=== PATIENT | female | born 1930 | race Caucasian/White ===

== ENCOUNTER → 2017-01-05 | Outpatient (CLI) | payer BC ==
--- NOTE | 2017-01-05 12:19 | MAMMOGRAPHY REPORT ---
BILATERAL DIGITAL SCREENING MAMMOGRAM WITH CAD: 01/05/2017 CLINICAL HISTORY: Routine screening. TECHNIQUE: Bilateral CC and MLO views were obtained. Current study was also evaluated with a Compute r Aided Detection (CAD) system. COMPARISON: Comparison is made to exams dated: 01/04/2016 mammogram - [facility], mammogram, 03/21/2013 mammogram, 03/20/2012 mammogram, 02/06/2011 mammogram, and 01/28/2010 mammo gram - [facility]. BREAST COMPOSITION: The tissue of both breasts is heterogeneously dense, which may obscure small mas ses. FINDINGS: A linear scar marker overlies the right upper outer quadrant. There are scattered benign r ound calcifications in the breasts. No suspicious mass, architectural distortion or cluster of suspi cious microcalcifications is seen. IMPRESSION: ACR BI-RADS CATEGORY 1: NEGATIVE There is no mammographic evidence of malignancy. A 1 year screening mammogram is recommended. The pa tient will receive written notification of the results. Approximately 10% of breast cancers are not detected with mammography. A negative mammographic report should not delay biopsy if a clinically suggestive mass is present. Dorothy Moon M.D. ay/:01/05/2017 10:23:47 Bus Steward: Lala BELL(R)(M), [facility] letter sent: Normal 1/2 BI-RADS Code: ACR BI-RADS Category 1: Negative
== END | disposition home or self-care (01) ==
LOC: C.MAMM 09:38
PROVIDERS: ATTEND Internal Medicine
DX: Z12.31 Encounter for screening mammogram for malignant neoplasm of breast (principal)

== ENCOUNTER → 2017-02-22 | Outpatient (CLI) | payer BC ==
--- NOTE | 2017-03-02 09:34 | CODING QUERY MEDICAL NECESSITY ---
SUPPORTING DIAGNOSIS NEEDED Dr. Michael, A supporting diagnosis is required for the test/procedure performed on this patient in order for us to be reimbursed by the patient's insurance. Please provide a supporting diagnosis for the following test/procedure listed below next to the test name along with your signature. *If there is no additional diagnosis for this patient that would support the following test/procedure please document that below next to the test/procedure. Test(s)/Procedure(s) that require a supporting diagnosis: * ([id number]) B12 VITAMIN LEVEL DIAGNOSIS: DATE OF SERVICE: 02/22/17 Provider Signature: Date: Thank you [facility] Information Management Once completed, please kindly fax back to [phone] For questions please call [phone]
== END | disposition home or self-care (01) ==
LOC: C.LABVPSUW 09:17
PROVIDERS: ATTEND Psychiatry & Neurology Neurology
DX: R47.89 Other speech disturbances (principal); R41.3 Other amnesia

== ENCOUNTER → 2017-03-02 | Outpatient (CLI) | payer BC ==
--- NOTE | 2017-03-02 11:45 | DIAGNOSTIC IMAGING REPORT ---
MRI OF THE BRAIN WITHOUT CONTRAST CLINICAL HISTORY: WORD FINDING DIFFICULTY. COMPARISON STUDY: None. TECHNIQUE: Utilizing a 1.5 Maria Luz magnet and dedicated coil, multiplanar, multiecho imaging of the brain was performed without IV contrast. FINDINGS: There are no areas of restricted diffusion to suggest acute infarct. No acute intracranial hemorrhage, midline shift or mass effect is present. Mild ventricular dilatation is likely due to atrophy. There is a cavum septum pellucidum. There is mild atrophy. No intracranial masses are identified on this unenhanced exam. A few small white matter T2 hyperintense foci within the bilateral frontal lobes suggest minimal small vessel disease. Calvarial signal is maintained. There is a small amount of fluid within left mastoid air cells. Flow-voids for the major intracranial vessels are present. Orbits and sinuses are unremarkable. IMPRESSION: 1. No acute intracranial findings. 2. Mild atrophy and minimal small vessel disease. 3. No intracranial masses identified on unenhanced exam. 4. Small amount of fluid within the left mastoid air cells. Electronically signed by: Get Melendez M.D. 03/02/2017 11:43 AM Dictated Date/Time: 03/02/2017 11:40 AM
== END | disposition home or self-care (01) ==
LOC: C.MRIBC 10:20
PROVIDERS: ATTEND Psychiatry & Neurology Neurology
DX: R47.89 Other speech disturbances (principal)

== ENCOUNTER → 2017-04-12 | Outpatient (CLI) | payer BC ==
[~2017-04-12] MED LIST: REGADENOSON 0.4 MG/5 ML SYR ONE
--- NOTE | 2017-04-13 14:54 | MYOCARDIAL PERFUSION SCAN ---
DATE OF THE PROCEDURE: 04/12/2017. REASON FOR THE PROCEDURE: Chest discomfort, shortness of breath pressure, history of SVT, and dyspnea on exertion. The patient underwent a Lexiscan stress ECG. The results of that are under a separate cover. There were no diagnostic ST changes either in peak Lexiscan effect or recovery. TECHNIQUE: For the stress portion of the study 32.8 mCi of technetium-99m Cardiolite IV was injected at 11:10 a.m. on 04/12/2017. Thirty minutes following the injection, imaging of the heart was performed in multiple projections. For the rest portion of the study, 11.1 mCi of technetium-99m Cardiolite was injected IV at 9:40 a.m. One hour following the injection, imaging of the heart was performed in the same projections. RAW DATA: On raw data there is a mild amount of motion artifact on the stress images. There is small in size, mild in intensity fixed apical defect which is most consistent with apical thinning. There is a moderate in size, moderate intensity fixed septal defect. This is most consistent with septal thinning from the membranous septum. There is no evidence of ischemia nor scar. Quantitative analysis performed confirms these findings with a sum stress score of 0 suggesting a normal study. Gated SPECT was performed. Overall, left ventricular size and function is preserved. The end-diastolic volume was 47 mL. The calculated ejection fraction was 79%. There is no visual evidence of transient ischemic dilatation. IMPRESSIONS: 1. Normal myocardial perfusion study without evidence of ischemia nor scar. 2. Normal left ventricular size and function with a calculated ejection fraction of 79%. [facility]
== END | disposition home or self-care (01) ==
LOC: C.NUCL 09:06
PROVIDERS: ATTEND Internal Medicine Cardiovascular Disease
DX: I47.1 Supraventricular tachycardia (principal); R06.09 Other forms of dyspnea

== ENCOUNTER → 2017-05-23 | Day surgery (SDC) | payer BC ==
[2017-05-15 07:51] VITALS: Ht 152.4 cm; Wt 72.7 kg
[~2017-05-23] VITALS: Ht 152.4 cm; Wt 72.7 kg
[~2017-05-23] MED LIST changes: +ATOR-24 PO; +CALC600T9 PO; +FURO-85 PO; +LIDOCAINE HCL 2% 2 ML VIAL (20MG/ML) ONE; +METO100T7 PO; +PRLSR20 PO; +PROPOFOL IV EMULSION 10 MG/ML 20 ML VIAL IV ONE; -REGADENOSON 0.4 MG/5 ML SYR ONE; +SODIUM CHLORIDE 0.9% 500ML 500 ML IV ONE
--- NOTE | 2017-05-23 13:59 | Endo History and Physical ---
History & Physical Date of Service: May 23, 2017. Chief Complaint: Referring Physician: History of Present Illness reflux/sob Past Surgical History Hx Cardiac Surgery: No Hx Internal Defibrillator: No Hx Pacemaker: No Hx Abdominal Surgery: Yes (APPY, HYSTERECTOMY) Hx of Implantable Prosthesis: No Hx Post-Op Nausea and Vomiting: No Hx Cancer Surgery: No Hx Thoracic Surgery: No Hx Orthopedic: Yes (RT KNEE ARTHROSCOPY, RT RCR) Hx Urinary Tract Surgery: No Family History Colon CA Social History Smoking Status: Never Smoker Hx Substance Use: No Hx Alcohol Use: No Allergies Coded Allergies: Aspirin (Verified Allergy, Unknown, GI BLEED? ANEMIA, 05/15/17) Ketorolac Tromethamine (Verified Allergy, Unknown, SWELLING, 05/15/17) Meperidine (Verified Allergy, Unknown, SHORTNESS OF BREATH, 05/15/17) Rofecoxib (Verified Allergy, Unknown, "THROAT CLOSED UP", 05/15/17) Current Medications Reported Home Medications Medications Dose Route/Sig Max Daily Dose Days Date Category Lasix (Furosemide) 20 Mg Tab 20 Mg PO Q2D 05/15/17 Reported Calcium + D (Calcium Carbonate-Vitamin D) 1 Tab Tab 1 Tab PO QPM 05/15/17 Reported Toprol Xl (Metoprolol Succinate) 100 Mg Tab 100 Mg PO QPM 05/15/17 Reported Prilosec (Omeprazole) 20 Mg Capcr 20 Mg PO QPM 05/15/17 Reported Lipitor (Atorvastatin Calcium) 40 Mg Tab 40 Mg PO QPM 05/15/17 Reported Vital Signs Weight (Kilograms): 72.73 Height (Feet): 5 Height (Inches): 0 Physical Exam General Appearance: WD/WN, no apparent distress Respiratory/Chest: Auscultation: breath sounds normal Cardiovascular: Heart Auscultation: RRR Abdomen: Bowel Sounds: normal Inspection & Palpation: soft, non-distended, no tenderness, guarding & rebound Assessment and Plan EGD
--- NOTE | 2017-05-23 15:20 | Anesthesiology Progress Note ---
Anesthesia Post Op Note Date & Time May 23, 2017 at 15:20 Vital Signs Pain Intensity: 0 Vital Signs Past 12 Hours Date Time Temp Pulse Resp B/P (MAP) Pulse Ox O2 Delivery O2 Flow Rate FiO2 05/23/17 15:05 71 12 134/66 (88) 96 Room Air 05/23/17 14:25 36.5 72 20 149/79 (102) 96 Room Air Notes Mental Status: alert / awake / arousable, participated in evaluation Pt Amnestic to Procedure: Yes Nausea / Vomiting: adequately controlled Pain: adequately controlled Airway Patency, RR, SpO2: stable & adequate BP & HR: stable & adequate Hydration State: stable & adequate Anesthetic Complications: no major complications apparent
--- NOTE | 2017-05-23 15:30 | GI REPORT ---
Procedure Date: 05/23/2017 2:42 PM Procedure: Upper GI endoscopy Indications: Gastro-esophageal reflux disease, Abnormal UGI series, Chest pain (non cardiac) Medicines: Propofol per Anesthesia Complications: No immediate complications. Estimated blood loss: None. Estimated Blood Loss: Estimated blood loss: none. Procedure: Pre-Anesthesia Assessment: - Prior to the procedure, a History and Physical was performed, and patient medications and allergies were reviewed. The patient's tolerance of previous anesthesia was also reviewed. The risks and benefits of the procedure and the sedation options and risks were discussed with the patient. All questions were answered, and informed consent was obtained. Prior Anticoagulants: The patient has taken no previous anticoagulant or antiplatelet agents. ASA Grade Assessment: III - A patient with severe systemic disease. After reviewing the risks and benefits, the patient was deemed in satisfactory condition to undergo the procedure. After obtaining informed consent, the endoscope was passed under direct vision. Throughout the procedure, the patient's blood pressure, pulse, and oxygen saturations were monitored continuously. The scope was introduced through the mouth, and advanced to the third part of duodenum. The upper GI endoscopy was accomplished without difficulty. The patient tolerated the procedure well. Findings: The examined esophagus was normal. A large hiatus hernia was found. The proximal extent of the gastric folds (end of tubular esophagus) was 33 cm from the incisors. The hiatal narrowing was 39 cm from the incisors. The Z-line was 33 cm from the incisors. The entire examined stomach was normal. The examined duodenum was normal. Retained gastric contents are not identified on this exam. The cardia and gastric fundus were normal on retroflexion. Impression: - Normal esophagus. - Large hiatus hernia. - Normal stomach. - Normal examined duodenum. - No specimens collected. Recommendation: - Discharge patient to home (ambulatory). - Advance diet as tolerated. - Continue present medications. - Return to referring physician as previously scheduled. MD Zhen Almonte MD 05/23/2017 3:29:51 PM This report has been signed electronically. Note Initiated On: 05/23/2017 2:42 PM I attest to the content of the Intraoperative Record and orders documented therein, exceptions below
--- NOTE | 2017-05-23 15:31 | Discharge Instructions ---
Endoscopy Patient Instructions Date / Procedure(s) Performed May 23, 2017. EGD Allergy Information Coded Allergies: Aspirin (Verified Allergy, Unknown, GI BLEED? ANEMIA, 05/23/17) Ketorolac Tromethamine (Verified Allergy, Unknown, SWELLING, 05/23/17) Meperidine (Verified Allergy, Unknown, SHORTNESS OF BREATH, 05/23/17) Pseudoephedrine (Verified Allergy, Unknown, decreased heart rate, 05/23/17) Rofecoxib (Verified Allergy, Unknown, "THROAT CLOSED UP", 05/23/17) Discharge Date / Findings May 23, 2017. Large Medication Instructions Restart Stopped Medication(s): Reported Home Medications Medications Dose Route/Sig Max Daily Dose Days Date Category Lasix (Furosemide) 20 Mg Tab 20 Mg PO Q2D 05/15/17 Reported Calcium + D (Calcium Carbonate-Vitamin D) 1 Tab Tab 1 Tab PO QPM 05/15/17 Reported Toprol Xl (Metoprolol Succinate) 100 Mg Tab 100 Mg PO QPM 05/15/17 Reported Prilosec (Omeprazole) 20 Mg Capcr 20 Mg PO QPM 05/15/17 Reported Lipitor (Atorvastatin Calcium) 40 Mg Tab 40 Mg PO QPM 05/15/17 Reported Reported Home Medications Medications Dose Route/Sig Max Daily Dose Days Date Category Lasix (Furosemide) 20 Mg Tab 20 Mg PO Q2D 05/15/17 Reported Calcium + D (Calcium Carbonate-Vitamin D) 1 Tab Tab 1 Tab PO QPM 05/15/17 Reported Toprol Xl (Metoprolol Succinate) 100 Mg Tab 100 Mg PO QPM 05/15/17 Reported Prilosec (Omeprazole) 20 Mg Capcr 20 Mg PO QPM 05/15/17 Reported Lipitor (Atorvastatin Calcium) 40 Mg Tab 40 Mg PO QPM 05/15/17 Reported Provider Instructions Activity Restrictions - No exercising or heavy lifting for 24 hours. - Do not drink alcohol the day of the procedure. - Do not drive a car or operate machinery until the day after the procedure. - Do not make any important decisions or sign important papers in 24 hours after the procedure. Following Day: - Return to full activity which may include returning to work/school. Diet Start your diet with liquids and light foods (jello, soup, juice, toast). Then eat your usual diet if not nauseated. Treatment For Common After Affects For mild abdominal pain, bloating, or excessive gas: - Rest - Eat lightly - Lie on right side Follow-Up Information Follow-up with Dr. Vargas as scheduled Anesthesia Information What You Should Know You have had a procedure that required some medicine to reduce anxiety and discomfort. This treatment is called moderate sedation. After receiving the treatment, you may be sleepy, but you will be able to breathe on your own. The effects of the treatment may last for several hours. Follow these instructions along with Activity/Diet recommendations noted above: * Do NOT do anything where dizziness or clumsiness would be dangerous. * Rest quietly at home today, then you can be up and about tomorrow. * Have a responsible person stay with you the rest of today. * You may have had an I.V. today. If so, you may take the dressing off later today. Recommendations Call your doctor if: * Trouble breathing * Continuous vomiting for more than 24 hours * Temperature above 101 degrees * Severe abdominal pain or bloating * Pain not relieved by pain medicine ordered * There is increased drainage or redness from any incision * A large amount of rectal bleeding greater than 2-3 tablespoons. (If you had a polyp/s removed or have hemorrhoids, a small amount of blood - from the rectum is to be expected.) * You have any unanswered questions or concerns. IN THE EVENT OF A SERIOUS EMERGENCY, GO TO THE NEAREST EMERGENCY ROOM Your discharge instructions were prepared by provider Zhen Jimenez. Patient Instructions Signature Page Rossana Olivares Patient (or Guardian) Signature/Date: I have read and understand the instructions given to me by my caregivers. Caregiver/RN/Doctor Signature/Date: The above-named patient and/or guardian has received patient instructions on this date. + Original Patient Signature Page (only) stays with chart. Please make copy for patient.
[2017-05-23 15:35] VITALS: BP 144/72; PULSE 67; O2SAT 97
== END | disposition home or self-care (01) ==
LOC: C.GI 13:27
PROVIDERS: ATTEND Internal Medicine Gastroenterology
DX: R07.89 Other chest pain (principal); K44.9 Diaphragmatic hernia without obstruction or gangrene; K21.9 Gastro-esophageal reflux disease without esophagitis; Z90.49 Acquired absence of other specified parts of digestive tract; Z90.710 Acquired absence of both cervix and uterus; Z80.0 Family history of malignant neoplasm of digestive organs

== ENCOUNTER → 2017-06-06 | Outpatient (CLI) | payer BC ==
[~2017-06-06] MED LIST changes: -LIDOCAINE HCL 2% 2 ML VIAL (20MG/ML) ONE; -PROPOFOL IV EMULSION 10 MG/ML 20 ML VIAL IV ONE; -SODIUM CHLORIDE 0.9% 500ML 500 ML IV ONE
== END | disposition home or self-care (01) ==
LOC: C.RDSM 11:08
PROVIDERS: ATTEND Family Medicine Sports Medicine
DX: M54.5 Low back pain (principal); M25.551 Pain in right hip

== ENCOUNTER 2017-08-18 22:52 | Emergency (ER) | payer BC ==
[~2017-08-18] VITALS: Ht 154.9 cm; Wt 78.4 kg
[2017-08-18 22:58] VITALS: TEMP 36.4; Ht 154.9 cm; Wt 78.4 kg
[2017-08-18] MEDS ORDERED: ACETAMINOPHEN 500 MG TAB PO STA (23:11)
--- NOTE | 2017-08-18 23:16 | EMERGENCY ROOM VISIT NOTE ---
History Report prepared by Neva: Mariajose Doe Under the Supervision of: Dr. Aman Quinones M.D. First contact with patient: 22:55 Chief Complaint: LEG PAIN,LEG INJURY Stated Complaint: LEFT LEG/HIP PAIN History of Present Illness The patient is an 87 year old female who presents to the Emergency Room with complaints of persistent left leg pain that started this morning. The patient rates her pain a 10/10 in severity. However, the patient is smiling in room and in minimal distress. She notes the pain starts at her left hip and shoots down to her let ankle. 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 The patient has not had back surgery in the past. The patient notes she's had trouble with her sciatica nerve in the past. She reports she took Tylenol this morning and it helped her pain. She states she felt fine throughout the day until dinner time when her leg started to feel stiff. She notes she took a walk to help the stiffness and on her way back it began to hurt. The patient states she exercised yesterday. The patient denies any back pain, nausea, or fever. She reports she was recently sick with a sore throat, sinus infection, and bladder infection but she is feeling better now. Source of History: patient Onset: this morning Position: leg (left) Symptom Intensity: 10/10 Timing: other (persistent) Associated Symptoms: No fevers, No nausea, No back pain Review of Systems See HPI for pertinent positives & negatives. A total of 10 systems reviewed and were otherwise negative. Past Medical & Surgical Arthritis in back. Family History No pertinent family history Social History Smoking Status: Never Smoker Marital Status: single Occupation Status: unemployed Current/Historical Medications Scheduled Atorvastatin (Lipitor), 40 MG PO QPM Calcium Carbonate-Vitamin D (Calcium + D), 1 TAB PO QPM Furosemide (Lasix), 20 MG PO Q2D Metoprolol Succinate (Toprol Xl), 100 MG PO QPM Omeprazole (Prilosec), 20 MG PO QPM Allergies Coded Allergies: Aspirin (Verified Allergy, Unknown, GI BLEED? ANEMIA, 05/23/17) Ketorolac Tromethamine (Verified Allergy, Unknown, SWELLING, 05/23/17) Meperidine (Verified Allergy, Unknown, SHORTNESS OF BREATH, 05/23/17) Pseudoephedrine (Verified Allergy, Unknown, decreased heart rate, 05/23/17) Rofecoxib (Verified Allergy, Unknown, "THROAT CLOSED UP", 05/23/17) Physical Exam Vital Signs Date Time Temp Pulse Resp B/P (MAP) Pulse Ox O2 Delivery O2 Flow Rate FiO2 08/19/17 03:16 76 20 180/80 95 Room Air 08/19/17 02:24 84 20 201/95 97 Room Air 08/19/17 00:46 76 20 179/97 97 Room Air 08/19/17 00:18 78 18 145/78 96 Room Air 08/18/17 22:58 36.4 17 161/79 96 Room Air Physical Exam GENERAL: Patient is anxious appearing and in minimal distress. HEENT: No acute trauma, normocephalic atraumatic, mucous membranes moist, no nasal congestion, no scleral icterus. NECK: No stridor, no adenopathy, no meningismus, trachea is midline. LUNGS: No dyspnea. Clear to auscultation and equal bilaterally. No wheeze, no rhonchi. HEART: Regular rate and rhythm. No murmurs, rubs, gallops appreciated. ABDOMEN: Soft, nontender, bowel sounds positive, no masses appreciated, no peritonitis. BACK: No midline tenderness, no CVA tenderness EXTREMITIES: Normal motion all extremities, no cyanosis, no edema. NEUROLOGIC: Alert and oriented, no acute motor or sensory deficits, no focal weakness, cranial nerves grossly intact. SKIN: No rash, no jaundice, no diaphoresis. Medical Decision & Procedures ER Provider Diagnostic Interpretation: Radiology results and stated below per my review and radiologist interpretation: US VENOUS LEFT LOWER EXTREMITY: No DVT.\\ 3 VIEW HIP/PELVIC XRAY: Degenerative changes. No fracture or dislocation. 2 VIEW KNEE XRAY: Mild degenerative changes, no fracture or dislocation. 3 VIEW LUMBAR SPINE XRAY: Significant degenerative changes/arthritis. No fracture or dislocation. Similar to previous from 05/2017. Medications Administered Medications (Trade) Dose Ordered Sig/Genny Route Start Time Stop Time Status Last Admin Dose Admin Acetaminophen (Tylenol Tab) 1,000 mg NOW STAT PO 08/18/17 23:11 08/18/17 23:15 DC 08/19/17 00:44 1,000 MG Oxycodone HCl (Roxicodone Immediate Rel Tab) 2.5 mg NOW STAT PO 08/19/17 00:36 08/19/17 00:37 DC 08/19/17 00:44 2.5 MG Dexamethasone Sodium Phosphate (Dexamethasone Inj Pf) 10 mg NOW ONCE IM 08/19/17 02:00 08/19/17 02:01 DC 08/19/17 02:04 10 MG Oxycodone HCl (Roxicodone Immediate Rel 5MG Home Pack) 1 homepack UD ONCE PO 08/19/17 03:15 08/19/17 03:16 DC 08/19/17 03:17 1 HOMEPACK ED Course 2255: The patient was evaluated in room C2B. A complete history and physical exam was performed. 0035: I updated the patient on her results. She said she is not going home until the pain is gone. She is requesting a shot in her back. I informed her we do not do those in the ER. She stated this is identical to when she needed a shot in her back 3 years ago. She confirmed the shot was done by orthopedics, not the ER. 0155: I reevaluated the patient and she was asleep and in no distress. She was easily awoken. She said her pain has not gotten any better but then proceeded to admit she has no hip or back pain but still has knee pain. She is able to move all joints, has good strength, and good pulses. No swelling or redness or knee. She wishes a steroid shot and a walker. 0220: I reevaluated the patient and she is able to ambulate by herself to the bathroom with walker. She is able to fully move knee. She is willing to return to [place] and see how she feels. She will follow up with her PCP on Sunday as planned. She requested that our complex case manager call [facility] to make sure they bring her food tomorrow. I asked case management to speak with the patient. 0330: Discussed results and discharge instructions: She verbalized understanding and agreement. The patient is ready for discharge. Medical Decision Differential Diagnosis: Sciatica, arthritic complication, lumbar compression, fracture, DVT, muscle strain, septic joint, arterial occlusion, CHF amongst other. 87 yr old female arrives via EMS for evaluation of left leg pain. Notes pain from left buttock to left hip to left knee and ankle all laterally. This started this am and she admits increased exercise last 48 hours. Also notes this is similar to previous sciatica she has had many times previously. She has unremarkable exam with bilateral legs equal, good pulses, no significant swelling, no erythema, no sensation deficits. She is able to move hip/knee without significant discomfort but notes pain with lifting leg or walking. Given Tyl/Oxy IR and able to ambulate on own with walker. Sleeping otherwise in no distress. I did xrays lumbar, pelvis, l hip, l knee and US left leg without acute findings. Symptoms consistent with sciatica though may have secondary component of left knee arthritic irritation given resolution sciatica while here but left lateral knee pain remains. She has no evidence of septic joint, arterial occlusion, cauda equina, nor other acute surgical emergency. I have advised she follow up with Ortho who she states she has previously seen for this same discomfort. I suspect this is all secondary to increased activity last few days now that she is feeling better from URI/UTI she had had last few weeks. She is stable, no distress and breathing comfortably at discharge. I explained at length the dangers of narcotics and falls and will send home with walker for better stability. Medication Reconcilliation Current Medication List: was personally reviewed by me Blood Pressure Screening Patient's blood pressure: Elevated blood pressure Blood pressure disposition: Elevated BP felt to be situational Impression Primary Impression: Acute left-sided back pain with sciatica Additional Impression: Left lateral knee pain Scribe Attestation The scribe's documentation has been prepared under my direction and personally reviewed by me in its entirety. I confirm that the note above accurately reflects all work, treatment, procedures, and medical decision making performed by me. Departure Information Dispostion Home / Self-Care Referrals Primary Provider Patient Instructions ED Sciatica, My [facility] Additional Instructions Rest for the next 2 days and avoid over exertion and exercise. Return if leg weakness, loss of bowel/bladder control, or severe pain. Use Tylenol as needed for pain. Follow up with your primary provider in 2 days for recheck. If pain continues you may require further testing, medications and/or physical therapy. Problem Qualifiers
[2017-08-19] MEDS ORDERED: OXYCODONE HCL IR 5 MG TAB (IMMEDIATE RELEASE) PO STA (00:36)
[2017-08-19] MEDS ORDERED: DEXAMETHASONE **PF** INJ 10 MG/ML VIAL IM ONE (02:00)
[2017-08-19] MEDS ORDERED: OXYCODONE IR HOME PACK PO ONE (03:15)
[2017-08-19 03:16] VITALS: BP 180/80; PULSE 76; O2SAT 95
--- NOTE | 2017-08-19 07:24 | DIAGNOSTIC IMAGING REPORT ---
ULTRASOUND LEFT LOWER EXTREMITY VENOUS CLINICAL HISTORY: Left leg pain. COMPARISON STUDY: No priors. TECHNIQUE: Real-time, grayscale, and color Doppler sonography of the deep veins of the left lower extremity was performed from the inguinal crease to the calf. Compression and augmentation were utilized. FINDINGS: There is no sonographic evidence of deep venous thrombosis identified in the left lower extremity. The common femoral, superficial femoral, and popliteal veins are patent and normally compressible. The greater saphenous vein and the profunda femoris vein at the junction with the common femoral vein are clear. The visualized calf veins are patent. IMPRESSION: There is no sonographic evidence of deep venous thrombosis identified in the left lower extremity. Electronically signed by: Bradley Valdez M.D. 08/19/2017 7:22 AM Dictated Date/Time: 08/19/2017 7:22 AM
--- NOTE | 2017-08-19 10:03 | DIAGNOSTIC IMAGING REPORT ---
LEFT KNEE 2 VIEWS CLINICAL HISTORY: Left leg pain. FINDINGS: AP and crosstable lateral views of the left knee are obtained. No prior studies are available for comparison at the time of dictation. The skeletal structures are osteopenic. No fracture is seen. There is mild tricompartmental degenerative joint space narrowing. Large patellar enthesophytes are observed. A calcified fabella is incidentally noted. There is no significant joint effusion. Mild soft tissue swelling is noted around the knee. Atherosclerotic calcification is observed in the popliteal artery. IMPRESSION: 1. Mild soft tissue swelling with no radiographic evidence of left knee fracture. 2. Osteopenia and arthritic change as above. Electronically signed by: Bradley Valdez M.D. 08/19/2017 10:01 AM Dictated Date/Time: 08/19/2017 10:00 AM
--- NOTE | 2017-08-19 10:11 | DIAGNOSTIC IMAGING REPORT ---
SINGLE VIEW PELVIS; 2 VIEWS LEFT HIP CLINICAL HISTORY: Left-sided sciatica and hip pain. FINDINGS: An AP view of the pelvis with AP and frog-leg views of the left hip are obtained. No prior studies are available for comparison at the time of dictation. The skeletal structures are osteopenic. There is no radiographic evidence of fracture involving the hips or bony pelvis. Mild sclerotic change is noted in the sacroiliac joints. There is mild/moderate arthritic change in the hips with associated joint space narrowing. Mild bony overgrowth is seen along the acetabular roofs. Enthesophytes arise from the greater trochanters of the proximal femora as well as the anterior superior iliac spines. Lumbosacral spondylosis is partially imaged. The soft tissues overlying the left hip are normal in appearance. There are small pelvic phleboliths. Mild atherosclerotic calcification is seen in the femoral arteries. IMPRESSION: 1. No fracture is identified involving the hips or bony pelvis. 2. Osteopenia and degenerative change as above. Electronically signed by: Bradley Valdez M.D. 08/19/2017 10:10 AM Dictated Date/Time: 08/19/2017 10:08 AM
--- NOTE | 2017-08-19 10:15 | DIAGNOSTIC IMAGING REPORT ---
LUMBAR SPINE 3 VIEWS CLINICAL HISTORY: Left-sided sciatica. FINDINGS: AP, lateral, and coned-down views of the lumbar spine are compared to study dated 06/06/2017. The skeletal structures are osteopenic. There is no radiographic evidence of fracture or malalignment. Vertebral body height is maintained throughout the lumbar spine. There is minimal retrolisthesis at L1-L2. Alignment is otherwise preserved. There is straightening of the lumbar lordosis. The transverse and spinous processes appear intact. Anterior and lateral marginal osteophytes are seen throughout. There is advanced disc space narrowing seen at L4-L5. Moderate disc space narrowing is seen at the remaining lumbar levels. Multilevel facet arthropathy is observed. The visualized sacrum and bony pelvis appear intact. Sclerotic change is noted in the sacroiliac joints. No bowel obstruction is identified. There is moderate constipation. Atherosclerotic calcification is noted in the abdominal aorta. Numerous phleboliths are seen in the pelvis. IMPRESSION: 1. There is no radiographic evidence of acute fracture or malalignment involving the lumbar spine. 2. Osteopenia and multilevel spondylosis as above. Dictated: 08/19/2017 9:59 AM Transcribed: 08/19/2017 10:15 AM [email or web address] Electronically signed by: Bradley Valdez M.D. 08/19/2017 10:24 AM Dictated Date/Time: 08/19/2017 9:59 AM
== END 2017-08-19 03:19 | disposition home or self-care (01) ==
LOC: EDBD 22:52 → C.EDC 22:55
DX: M54.42 Lumbago with sciatica, left side (principal); M25.562 Pain in left knee; M47.9 Spondylosis, unspecified; Z88.6 Allergy status to analgesic agent; Z88.9 Allergy status to unspecified drugs, medicaments and biological substances